=== PATIENT | female | born 1950 | race Caucasian/White ===

== ENCOUNTER 2021-05-21 20:21 | Emergency (ER) | payer OTHER, MEDICARE | END 2021-05-21 21:10 | disposition home or self-care (01) | LOC: BURERS 20:21 | DX: R53.81 Other malaise (principal); R05 Cough; Z20.822 Contact with and (suspected) exposure to COVID-19; E11.9 Type 2 diabetes mellitus without complications; I10 Essential (primary) hypertension | CPT/HCPCS: 99283 ==